=== PATIENT | female | born 1980 | race Caucasian/White ===

== ENCOUNTER 2016-04-11 08:40 | Observation (INO) ==
--- NOTE | 2016-04-11 08:52 | Emergency Department Note ---
Disposition Clinical Impression: Diverticulitis Qualifiers: Diverticulitis site: large intestine Diverticulitis bleeding: without bleeding Diverticulitis complication: without perforation or abscess Qualified Code(s): K57.32 - Diverticulitis of large intestine without perforation or abscess without bleeding Leukocytosis Qualifiers: Leukocytosis type: unspecified Qualified Code(s): D72.829 - Elevated white blood cell count, unspecified Disposition: Admitted As Inpatient Condition: Good Time of Disposition: 12:45 Abdominal Pain HPI - General Chief Complaint: ED Abdominal Pain Stated Complaint: RLQ pain Time Seen by Provider: 04/11/16 08:51 Source: patient Mode of arrival: ambulatory Limitations: no limitations Nursing Notes Reviewed: Yes Vital Signs Reviewed: Yes - History of Present Illness HPI Narrative: 35-year-old female history of diverticulitis, ovarian cyst who presents to the ER with a chief complaint of abdominal pain. Patient reports onset of symptoms yesterday morning. States she has had a sharp right lower quadrant abdominal pain since onset. Reports that she has felt nauseated but no episodes of vomiting. Also reports diarrhea. No fevers at home. No sick contacts. Surgical history significant for cholecystectomy. No other complaints. Pt Subjective Complaint: abdominal pain Onset (ago): day(s) (1) Consistency: constant Location: RLQ Pain Severity: severe Pain Scale: 8 Quality: sharp Radiation: none Migration to: no migration Improves with: nothing Worsens with: movement Context: history of similar episodes Associated symptoms: Reports: nausea, diarrhea. Denies: vomiting, fever, chills , constipation, dysuria, hematuria Treatments prior to arrival: none - Related Data Previous Rx's Medication Instructions Recorded Ciprofloxacin HCl [Cipro] 500 mg PO BID #20 tablet 04/11/16 MetroNIDAZOLE [Flagyl] 500 mg PO TID #30 tablet 04/11/16 Ondansetron ODT [Zofran ODT] 4 mg SL Q6HR PRN #20 tab.rapdis 04/11/16 Oxycodone HCl/Acetaminophen 1 each PO Q6H PRN #14 tablet 04/11/16 [Percocet 5-325 mg Tablet] Allergies Allergy/AdvReac Type Severity Reaction Status Date / Time No Known Allergies Allergy Verified 04/11/16 08:48 All systems ED: reviewed and negative except as stated. Constitutional: Denies: fever Cardiovascular: Denies: chest pain Respiratory: Denies: cough, dyspnea Gastrointestinal: Reports: abdominal pain, nausea, diarrhea. Denies: vomiting Genitourinary: Denies: dysuria, hematuria Abdominal Pain PMH - Past Medical History Medical history: Reports: non-contributory Reports: diverticulitis Female Surgical History: Reports: cholecystectomy - Social History Smoking status: Current every day smoker Alcohol use: Reports: none Drug use: Reports: none Physical Exam - General Limitations: no limitations General appearance: alert, in no apparent distress - Head Head exam: atraumatic, normocephalic, normal inspection - Eye Eye exam: Present: normal appearance, EOMI - ENT ENT exam: normal exam - Neck Neck exam: Present: normal inspection - Chest Chest inspection: Present: normal inspection, symmetric chest wall rise - Respiratory Respiratory exam: Present: normal lung sounds bilaterally - Cardiovascular Cardiovascular exam: Present: normal rhythm, tachycardia, normal heart sounds - Abdominal Exam Abdominal exam: Present: soft, tenderness (Moderate tenderness to palpation in the right lower quadrant and McBurney's point. No guarding or rigidity. Nondistended abdomen.) - Extremities Exam Extremities exam: Present: normal inspection, full ROM - Expanded Upper Extremity Exam Shoulder exam: Present: normal inspection, full ROM Arm exam: Present: normal inspection, full ROM Elbow exam: Present: normal inspection, full ROM Forearm/Wrist exam: Present: normal inspection, full ROM Hand exam: Present: normal inspection, full ROM - Expanded Lower Extremity Exam Hip/Pelvis exam: Present: normal inspection, full ROM Upper leg exam: Present: normal inspection, full ROM Knee exam: Present: normal inspection, full ROM Lower leg exam: Present: normal inspection, full ROM Ankle exam: Present: normal inspection, full ROM Foot/toe exam: Present: normal inspection, full ROM - Neurological Exam Neurological exam: Present: alert - Psychiatric Psychiatric exam: Present: normal affect, anxious - Skin Skin exam: Present: warm, dry, intact, normal color Course Course Narrative: Patient seen and examined. Vital signs reviewed. She has tenderness in the right lower quadrant. Reports a history of this in the past but not this severe. We will get the patient IV, IV fluids, Zofran and Dilaudid for pain. We will get a CT scan of the abdomen and pelvis for evaluation and some basic labs including lipase and LFTs. Disposition pending. - Reevaluation(s) Reevaluation #1: Patient seen after CT scan. She reports that her pain is under control now when she does not move. Also reports myalgias okay and does not need anything else for pain or nausea. Waiting for the final read from radiology. Reevaluation #2: Discussed results of CT scan the patient. She currently requests something else for pain. We will give her a dose of IV antibiotics here as well prior to discharge. Vital Signs Temperature 97.7 F 04/11/16 08:44 Pulse Rate 103 04/11/16 08:44 Respiratory Rate 18 04/11/16 08:44 Blood Pressure 132/85 04/11/16 08:44 O2 Sat by Pulse Oximetry 96 04/11/16 08:44 Temperature 98.1 F 04/11/16 15:50 Pulse Rate 71 04/11/16 15:50 Respiratory Rate 15 04/11/16 15:50 Blood Pressure 107/61 04/11/16 15:50 O2 Sat by Pulse Oximetry 95 04/11/16 15:50 Oxygen Delivery Oxygen Delivery Room Air Abdominal Pain - MDM Narrative Medical decision making narrative: 35-year-old female presents to the ER due to abdominal pain. She has a slight leukocytosis here of 15. Nausea and vomiting are controlled with anti-emetics. CT scan of the abdomen and pelvis reveals cecal diverticulitis as reported by the radiologist. No evidence of perforation or abscess formation. Patient given IV Cipro and Flagyl here. Her pain is controlled with IV medications. Patient agreeable with discharge home with follow-up to gastroenterology. She will be provided with Cipro and Flagyl for antibiotics, Zofran and Percocet for nausea and pain control. Patient instructed on reasons to return. 14:00 patient started developing vomiting again and was given 4 more of Zofran. Patient states she still feels nauseous and is unable to keep anything down. Patient agreeable to staying in the hospital for IV fluids and antibiotics. - Lab Data Lab results reviewed: Yes I reviewed the patient's lab results. Result diagrams: 04/11/16 09:18 04/11/16 09:18 Lab Results 04/11/16 04/11/16 04/11/16 Range/Units 09:06 09:06 09:18 WBC 15.5 H (4.3-11.1) K/mcL RBC 4.77 (3.82-4.97) M/mcL Hgb 14.7 (11.5-15.4) g/dL Hct 43.3 (35.3-44.9) % MCV 90.8 (83.0-100.0) fL MCH 30.8 (28.0-33.3) pg MCHC 33.9 (31.6-35.5) g/dL RDW 13.2 (11.5-14.5) % Plt Count 412 H (140-400) K/mcL MPV 9.9 (9.4-12.4) fL Immature Gran % 0.3 (0-4) % Seg Neutrophils % 76.9 % Lymphocytes % 15.5 % Monocytes % 5.7 % Eosinophils % 1.2 % Basophils % 0.4 % Neutrophils # 12.0 H (1.6-8.9) K/mcL Lymphocytes # 2.4 (0.6-4.6) K/mcL Monocytes # 0.9 (0.0-1.3) K/mcL Eosinophils # 0.2 (0.0-0.6) K/mcL Basophils # 0.1 (0.0-0.2) K/mcL PT (9.4-12.1) Seconds INR Sodium (136-145) mEq/L Potassium (3.5-4.5) mEq/L Chloride (98-109) mEq/L Carbon Dioxide (19-29) mEq/L BUN (7-20) mg/dL Creatinine (0.57-1.11) mg/dL Est GFR ( Amer) (> 60) Est GFR (Non-Af Amer) (> 60) BUN/Creatinine Ratio (6-26) Glucose (70-99) mg/dL Calculated Osmolality (280-300) Calcium (8.6-10.8) mg/dL Total Bilirubin (0.2-1.2) mg/dL Direct Bilirubin (0.0-0.5) mg/dL Indirect Bilirubin (0.0-1.2) mg/dL AST (5-34) Units/L ALT (0-55) Units/L Alkaline Phosphatase (38-126) Units/L Serum Total Protein (6.0-8.3) g/dL Albumin (3.5-5.0) g/dL Globulin (2.4-3.5) g/dL Albumin/Globulin Ratio (1.1-2.2) Lipase (8-78) Units/L Urine Color Yellow (Yellow) Urine Clarity Clear (Clear) Urine pH 6.5 (5.0-8.0) pH Units Ur Specific Whitney 1.025 (1.010-1.025) Urine Protein Trace (Neg-Trace) mg/dL Urine Glucose (UA) Normal (Normal) mg/dL Urine Ketones Negative (Negative) mg/dL Urine Blood Moderate H (Negative) Urine Nitrite Negative (Negative) Urine Bilirubin Negative (Negative) Urine Urobilinogen Normal (Normal) mg/dL Ur Leukocyte Esterase Negative (Negative) Urine Microscopic RBC 0-3 (0-3) per hpf Urine Microscopic WBC 3-5 H (0-3) per hpf Ur Squamous Epith Cells Many H (None-Few) per lpf Urine Bacteria Few (None-Few) per hpf Hyaline Casts None Seen (None-Few) per lpf Ur Culture Indicated? NO (NO) Urine Test Negative (Negative) 04/11/16 04/11/16 Range/Units 09:18 09:18 WBC (4.3-11.1) K/mcL RBC (3.82-4.97) M/mcL Hgb (11.5-15.4) g/dL Hct (35.3-44.9) % MCV (83.0-100.0) fL MCH (28.0-33.3) pg MCHC (31.6-35.5) g/dL RDW (11.5-14.5) % Plt Count (140-400) K/mcL MPV (9.4-12.4) fL Immature Gran % (0-4) % Seg Neutrophils % % Lymphocytes % % Monocytes % % Eosinophils % % Basophils % % Neutrophils # (1.6-8.9) K/mcL Lymphocytes # (0.6-4.6) K/mcL Monocytes # (0.0-1.3) K/mcL Eosinophils # (0.0-0.6) K/mcL Basophils # (0.0-0.2) K/mcL PT 13.6 H (9.4-12.1) Seconds INR 1.3 Sodium 136 (136-145) mEq/L Potassium 3.9 (3.5-4.5) mEq/L Chloride 102 (98-109) mEq/L Carbon Dioxide 22 (19-29) mEq/L BUN 10 (7-20) mg/dL Creatinine 0.77 (0.57-1.11) mg/dL Est GFR ( Amer) > 60 (> 60) Est GFR (Non-Af Amer) > 60 (> 60) BUN/Creatinine Ratio 13 (6-26) Glucose 92 (70-99) mg/dL Calculated Osmolality 281 (280-300) Calcium 9.1 (8.6-10.8) mg/dL Total Bilirubin 0.8 (0.2-1.2) mg/dL Direct Bilirubin 0.3 (0.0-0.5) mg/dL Indirect Bilirubin 0.5 (0.0-1.2) mg/dL AST 24 (5-34) Units/L ALT 37 (0-55) Units/L Alkaline Phosphatase 79 (38-126) Units/L Serum Total Protein 8.6 H (6.0-8.3) g/dL Albumin 3.8 (3.5-5.0) g/dL Globulin 4.8 H (2.4-3.5) g/dL Albumin/Globulin Ratio 0.8 L (1.1-2.2) Lipase 17 (8-78) Units/L Urine Color (Yellow) Urine Clarity (Clear) Urine pH (5.0-8.0) pH Units Ur Specific Whitney (1.010-1.025) Urine Protein (Neg-Trace) mg/dL Urine Glucose (UA) (Normal) mg/dL Urine Ketones (Negative) mg/dL Urine Blood (Negative) Urine Nitrite (Negative) Urine Bilirubin (Negative) Urine Urobilinogen (Normal) mg/dL Ur Leukocyte Esterase (Negative) Urine Microscopic RBC (0-3) per hpf Urine Microscopic WBC (0-3) per hpf Ur Squamous Epith Cells (None-Few) per lpf Urine Bacteria (None-Few) per hpf Hyaline Casts (None-Few) per lpf Ur Culture Indicated? (NO) Urine Test (Negative) - Radiology Data Radiology results reviewed: Yes I reviewed the patient's radiology results. Abdomen/Pelvis CT 04/11/16 09:04 IMPRESSION: Acute inflammatory change of the cecum is most consistent with focal cecal diverticulitis, less likely a focal infectious or inflammatory cecal colitis. There is no evidence of perforation, free air, or abscess. The appendix is normal. D/ / 04/11/2016 11:39:01 Konstantin Grullon MD / jones Interpreting Provider: Konstantin Grullon MD Attestation Statement - Attestation Attestation: I examined this patient and my medical decision-making was reviewed with the OTHER SPORTS COACH OR INSTRUCTOR/PA/Advanced Practice Nurse/Resident Physician. I agree with the documented findings, disposition and treatment plan as described except to the extent set forth below. 35-year-old female has easy with his right lower bowel pain. She had evolution of pain in the right lower quadrant past 24 hours. She has had no fevers. She does complain of nausea as well as diarrhea. No dysuria, hematuria or pyuria. Normal vaginal bleeding. No vaginal discharge. No recent trauma. Denies chest pain or dyspnea. No known ill exposures. Morbidly obese female in no apparent distress. Oropharynx clear mucous membranes dry. Neck is supple. Chest is clear to auscultation bilateral. Heart exam regular. Abdomen soft non-distended with moderate right lower quadrant tenderness. Flanks non-tender to palpation. Extremities warm and dry. Mild leukocytosis with white count 15,000. CT of the abdomen reveals cecal diverticulosis and diverticulitis. Appendix appears normal. She was given IV Cipro and Flagyl in the emergency department. She was temporarily better but the nausea and vomiting resumed and was unable to keep down oral fluids was therefore admitted for ongoing IV fluids and treatment.
[2016-04-11] MEDS ORDERED: 0.9 % Sodium Chloride 1,000 ML IVC ONE ×2 (08:58→10:43)
[2016-04-11] MEDS ORDERED: Ondansetron 4 MG/2 ML VIAL IVP ONE ×2 (08:58→13:34)
[2016-04-11] MEDS ORDERED: *HR* HYDROmorphone (PF) 1 MG/ML SYRINGE IVP ONE ×2 (09:04→11:56)
[2016-04-11 09:26] LABS: Basophils # 0.1 K/mcL (0.0-0.2); Basophils % 0.4 %; Eosinophils # 0.2 K/mcL (0.0-0.6); Eosinophils % 1.2 %; Hematocrit 43.3 % (35.3-44.9); Hemoglobin 14.7 g/dL (11.5-15.4); Immature Granulocytes % 0.3 % (0-4); Lymphocytes # 2.4 K/mcL (0.6-4.6); Lymphocytes % 15.5 %; Mean Corpuscular HGB Conc 33.9 g/dL (31.6-35.5); Mean Corpuscular Hemoglobin 30.8 pg (28.0-33.3); Mean Corpuscular Volume 90.8 fL (83.0-100.0); Mean Platelet Volume 9.9 fL (9.4-12.4); Monocytes # 0.9 K/mcL (0.0-1.3); Monocytes % 5.7 %; Platelet Count 412 K/mcL (140-400); Red Blood Count 4.77 M/mcL (3.82-4.97); Red Cell Distribution Width 13.2 % (11.5-14.5); Segmented Neutrophils % 76.9 %
[2016-04-11 09:26] LABS: Bilirubin,Urine Negative (Negative); Blood,Urine Moderate (Negative); Clarity,Urine Clear (Clear); Color,Urine Yellow (Yellow); Glucose,Urine (UA) Normal (Normal); Ketones,Urine Negative (Negative); Leukocyte Esterase,Urine Negative (Negative); Nitrite,Urine Negative (Negative); PH,Urine 6.5 pH Units (5.0-8.0); Protein,Urine Trace mg/dL (Neg-Trace); Specific Gravity,Urine 1.025 (1.010-1.025); Urobilinogen,Urine Normal (Normal)
[2016-04-11 09:30] LABS: Hyaline Casts,Urine None Seen per lpf (None-Few); RBC,Urine 0-3 per hpf (0-3); Squamous Epithelial Cell,Urine Many per lpf (None-Few)
[2016-04-11 09:33] LABS: INR 1.3; Prothrombin Time 13.6 Seconds (9.4-12.1)
[2016-04-11 09:41] LABS: Bacteria,Urine Few per hpf (None-Few)
[2016-04-11 09:42] LABS: Alanine Aminotransferase 37 Units/L (0-55); Albumin 3.8 g/dL (3.5-5.0); Albumin/Globulin Ratio 0.8 (1.1-2.2); Alkaline Phosphatase 79 Units/L (38-126); Aspartate Amino Transferase 24 Units/L (5-34); BUN/Creatinine Ratio 13 (6-26); Bilirubin,Direct 0.3 mg/dL (0.0-0.5); Bilirubin,Indirect 0.5 mg/dL (0.0-1.2); Bilirubin,Total 0.8 mg/dL (0.2-1.2); Blood Urea Nitrogen 10 mg/dL (7-20); Calcium 9.1 mg/dL (8.6-10.8); Carbon Dioxide 22 mEq/L (19-29); Chloride 102 mEq/L (98-109); Globulin 4.8 g/dL (2.4-3.5); Glucose 92 mg/dL (70-99); Lipase 17 Units/L (8-78); Osmolality,Calculated 281 (280-300); Potassium 3.9 mEq/L (3.5-4.5); Sodium 136 mEq/L (136-145); Total Protein 8.6 g/dL (6.0-8.3); eGFR For African Americans > 60 (> 60); eGFR For Non-African Americans > 60 (> 60)
[2016-04-11] MEDS ORDERED: MetroNIDAZOLE 500 MG/100 ML 500 MG/100 ML BAG IVPB ONE (11:56)
[2016-04-11] MEDS ORDERED: Naloxone 0.4 MG/ML INJ IVP PRN (15:40)
[2016-04-11] MEDS ORDERED: Ondansetron 4 MG/2 ML VIAL IVP PRN (15:40)
--- NOTE | 2016-04-11 15:50 | Internal Med History&Physical ---
Date of Encounter: 04/11/16 Time of Encounter: 15:44 Assessment and Plan (1) Diverticulitis Status: Acute Acute cecal diverticulitis: Etiology of this diverticulitis can be multifactorial. Patient is a young woman and in her age inflammatory bowel disease/autoimmune disease cannot be ruled out Plan: Nothing by mouth IV fluids normal saline 70 mL/h IV Zofran IV ciprofloxacin/IV metronidazole Close observation Patient has set up appointment with the gastroenterology/PCP This patient needs outpatient colonoscopy after the initial acute event is stabilized All above discussed with the patient and she verbalized understanding Qualifiers: Diverticulitis site: large intestine Diverticulitis bleeding: without bleeding Diverticulitis complication: without perforation or abscess Qualified Code(s): K57.32 - Diverticulitis of large intestine without perforation or abscess without bleeding (2) Leukocytosis Status: Acute This is likely secondary to diverticulitis. Antibiotics started for the patient. Qualifiers: Leukocytosis type: unspecified Qualified Code(s): D72.829 - Elevated white blood cell count, unspecified (3) DVT prophylaxis Status: Acute Heparin Medical decision-making: patient has a [id number] risk of worsening in spite of being on appropriate treatment The patient is clinically stable and she improved in terms of her vomiting, she can go home tomorrow Internal Medicine - H&P: HPI Chief complaint: abdominal pain Admitted From: Emergency Dept Plans for Post Hospital Care: Home History of present illness: PCP: Dr Rajesh Johnson PMH: H/O diverticulitis, Smoker HPI: Patient came to emergency room for persistent right lower quadrant abdominal pain. The pain started yesterday late morning. The pain was gradually progressing. The pain was waxing and waning in nature. The nature of the pain is sharp. Patient did not have any episode of vomiting at home but she felt nauseous. Patient had an episode of her diarrhea. Patient denies fever, sick contact. Patient denies history of chest pain, palpitation, dizziness and diplopia. In view of the persistent worsening pain, patient came to emergency room. Course in the emergency room: Patient was worked up in the emergency room. It was noted that her white blood cell count was elevated. Her white blood cell count was 15,000. She underwent CT scan of the abdomen. CT scan of the abdomen showed possibility of diverticulitis. Patient was given prescription after receiving IV antibiotics. Patient was all about to go home. But patient complains of persistent vomiting. In spite of 3 dosages of sore Zofran she did not respond and then she was still persistently vomited. Reason for admission: Persistent vomiting on the responding to the antiemetics in a patient who has a diverticulitis. Family history: Noncontributory Past Med Surg Social Fam HX - Past Medical History Medical history: non-contributory - Social History Smoking Status: Current every day smoker Alcohol use: none Drug use: none Internal Medicine - H&P: Meds Alprazolam [Xanax 1 MG Tablet] 1 mg PO BID 04/11/16 [History] Aripiprazole [Abilify] 5 mg PO DAILY 04/11/16 [History] Omeprazole [PriLOSEC] 40 mg PO DAILY 04/11/16 [History] Ciprofloxacin [Cipro] 500 mg PO BID 10 Days 04/13/16 [Rx] HYDROcodone/Acet 5/325 mg [Prospect 5-325 mg] 1 tab PO Q6H PRN #30 tab 04/13/16 [Rx ] MetroNIDAZOLE [Flagyl] 500 mg PO TID 10 Days 04/13/16 [Rx] Ondansetron [Zofran] 4 mg PO Q8HR PRN 30 Days 04/13/16 [Rx] Allergies No Known Allergies Allergy (Verified 04/11/16 08:48) All Systems PM: A 10-system review of systems was performed and is negative for pertinent findings except as documented above in the HPI. - Constitutional Constitutional: no chills, no fever(s), no night sweats - EENT Eyes: no change in vision, no discharge, no pain, no photophobia Ears: no ear discharge, no ear pain, no tinnitus Nose, mouth and throat: no dysphagia, no nasal discharge, no neck pain, no sore throat - Cardiovascular Cardiovascular ROS IM: no chest pain, no diaphoresis, no dyspnea, no lightheadedness, no palpitations, no syncope - Respiratory Respiratory: no cough, no dyspnea, no wheezing, no excessive phlegm production - Gastrointestinal Gastrointestinal: abdominal pain, belching, bloating, diarrhea, nausea, vomiting , no hematemesis, no hematochezia, no melena - Genitourinary Genitourinary: no change in urinary stream, no dysuria, no flank pain, no hematuria - Musculoskeletal Musculoskeletal ROS IM: no numbness, no tingling - Integumentary Integumentary IM: no rash, no unusual bruising - Neurological Neurological ROS: no confusion, no convulsions, no focal weakness, no numbness, no tingling, no tremor(s) - Hematologic/Lymphatic Hematologic/Lymphatic: no easy bruising - Constitutional Vitals: Temp Pulse Resp BP Pulse Ox 97.7 F 83 18 109/67 97 04/11/16 08:44 04/11/16 14:47 04/11/16 15:35 04/11/16 15:35 04/11/16 14:47 General appearance: Present: A&O X 3, pleasant, no acute distress, answers questions appropriately - Head Head exam: Present: atraumatic, normocephalic - Eye Eye exam: Present: PERRL, conjuntiva pink, sclera anicteric Pupils: Present: PERRL - Neck Neck exam general surgery: Present: supple, trachea midline. Absent: lymphadenopathy - Respiratory Respiratory exam: Present: CTAB. Absent: accessory muscle use, rales, rhonchi, wheezes - Cardiovascular Cardiovascular exam: Present: RRR, +S1, +S2. Absent: diastolic murmur, gallop, rubs, systolic murmur - GI/Abdominal GI/Abdominal exam: Present: normal bowel sounds, soft, no peritoneal signs. Absent: distended, tenderness - Extremities Exam Extremities exam: Present: warm, radial pulses palpable and symetrical. Absent : calf tenderness, cyanotic, pedal edema - Neurological Exam Neurological exam: Present: CN II-XII intact, oriented X3, no focal deficits. Absent: pronater drift, facial droop, speech deficit - Skin Skin exam: Present: dry, intact Internal Med - H&P Results - Labs CBC & Chem 7: 04/13/16 06:52 04/13/16 06:52
[2016-04-11] MEDS ORDERED: MetroNIDAZOLE 500 MG/100 ML 500 MG/100 ML BAG IVPB SCH (16:00)
[2016-04-11] MEDS: 0.9 % Sodium Chloride 1,000 ML IVC SCH (16:29)
[2016-04-11] MEDS: *HR* Morphine 2 MG/ML SYRINGE IVP PRN ×2 (16:29→20:51)
[2016-04-11] MEDS: *HR* Heparin 5,000 UNIT/ML VIAL SQ SCH (17:57)
[2016-04-11] MEDS: MetroNIDAZOLE 500 MG/100 ML 500 MG/100 ML BAG IVPB SCH (20:52)
[2016-04-12 05:20] LABS: Basophils # 0.1 K/mcL (0.0-0.2); Basophils % 0.5 %; Eosinophils # 0.1 K/mcL (0.0-0.6); Eosinophils % 0.5 %; Hematocrit 36.8 % (35.3-44.9); Immature Granulocytes % 0.5 % (0-4); Lymphocytes # 1.7 K/mcL (0.6-4.6); Mean Corpuscular HGB Conc 33.4 g/dL (31.6-35.5); Mean Corpuscular Volume 92.7 fL (83.0-100.0); Mean Platelet Volume 9.8 fL (9.4-12.4); Monocytes # 0.8 K/mcL (0.0-1.3); Neutrophils # 10.2 K/mcL (1.6-8.9); Platelet Count 316 K/mcL (140-400); Red Blood Count 3.97 M/mcL (3.82-4.97); Segmented Neutrophils % 79.5 %
[2016-04-12 05:21] LABS: Hemoglobin 12.3 g/dL (11.5-15.4)
[2016-04-12] MEDS: *HR* Morphine 2 MG/ML SYRINGE IVP PRN ×4 (05:34→18:36)
[2016-04-12] MEDS: MetroNIDAZOLE 500 MG/100 ML 500 MG/100 ML BAG IVPB SCH ×3 (05:34→20:09)
[2016-04-12] MEDS: *HR* Heparin 5,000 UNIT/ML VIAL SQ SCH ×2 (05:35→18:35)
[2016-04-12 05:40] LABS: Alanine Aminotransferase 41 Units/L (0-55); Albumin/Globulin Ratio 0.8 (1.1-2.2); Alkaline Phosphatase 63 Units/L (38-126); Aspartate Amino Transferase 27 Units/L (5-34); BUN/Creatinine Ratio 11 (6-26); Bilirubin,Total 1.1 mg/dL (0.2-1.2); Blood Urea Nitrogen 7 mg/dL (7-20); Calcium 8.7 mg/dL (8.6-10.8); Carbon Dioxide 22 mEq/L (19-29); Chloride 107 mEq/L (98-109); Globulin 3.9 g/dL (2.4-3.5); Glucose 96 mg/dL (70-99); Osmolality,Calculated 282 (280-300); Potassium 3.8 mEq/L (3.5-4.5); Sodium 137 mEq/L (136-145); Total Protein 6.9 g/dL (6.0-8.3); eGFR For African Americans > 60 (> 60); eGFR For Non-African Americans > 60 (> 60)
[2016-04-12] MEDS: 0.9 % Sodium Chloride 1,000 ML IVC SCH ×2 (08:29→12:20)
--- NOTE | 2016-04-12 12:41 | Internal Med Progress Note ---
<Anthony Luna - Last Filed: 04/12/16 13:22> Date of Encounter: 04/12/16 Time of Encounter: 09:00 - Assessment and plan (1) Diverticulitis Current Visit: Yes Status: Acute Assessment and plan: 04/12/16 Continue nothing by mouth Patient's emesis has resolved Continue antibiotics 04/11/16 Acute cecal diverticulitis: Etiology of this diverticulitis can be multifactorial. Patient is a young woman and in her age inflammatory bowel disease/autoimmune disease cannot be ruled out Plan: Nothing by mouth IV fluids normal saline 70 mL/h IV Zofran IV ciprofloxacin/IV metronidazole Close observation Patient has set up appointment with the gastroenterology/PCP This patient needs outpatient colonoscopy after the initial acute event is stabilized All above discussed with the patient and she verbalized understanding Qualifiers: Diverticulitis site: large intestine Diverticulitis bleeding: without bleeding Diverticulitis complication: without perforation or abscess Qualified Code(s): K57.32 - Diverticulitis of large intestine without perforation or abscess without bleeding (2) Leukocytosis Current Visit: Yes Status: Acute Assessment and plan: 04/12/69 This is trending down 04/11/16 This is likely secondary to diverticulitis. Antibiotics started for the patient. Qualifiers: Leukocytosis type: unspecified Qualified Code(s): D72.829 - Elevated white blood cell count, unspecified (3) DVT prophylaxis Current Visit: Yes Status: Acute Assessment and plan: Continue heparin - Subjective Interval history: Patient was seen and examined at bedside. She was lying in bed in no apparent distress. She says she is still having significant RLQ pain however says this is significantly better than yesterday. Her emesis has resolved. - Constitutional Vitals: Temp Pulse Resp BP Pulse Ox 99.3 F 84 16 100/66 95 04/12/16 11:16 04/12/16 11:16 04/12/16 11:16 04/12/16 11:16 04/12/16 11:16 General appearance: Present: A&O X 3, pleasant, no acute distress, answers questions appropriately - Head Head exam: Present: atraumatic, normocephalic - Eye Eye exam: Present: PERRL, conjuntiva pink, sclera anicteric Pupils: Present: PERRL - Neck Neck exam general surgery: Present: supple, trachea midline. Absent: lymphadenopathy - Respiratory Respiratory exam: Present: CTAB. Absent: accessory muscle use, rales, rhonchi, wheezes - Cardiovascular Cardiovascular exam: Present: RRR, +S1, +S2. Absent: diastolic murmur, gallop, rubs, systolic murmur - GI/Abdominal GI/Abdominal exam: Present: soft, tenderness, no peritoneal signs. Absent: distended Additional comments: Hypoactive bowel sounds, right lower quadrant tenderness palpation - Extremities Exam Extremities exam: Present: warm, radial pulses palpable and symetrical. Absent : calf tenderness, cyanotic, pedal edema - Neurological Exam Neurological exam: Present: CN II-XII intact, oriented X3, no focal deficits. Absent: pronater drift, facial droop, speech deficit - Skin Skin exam: Present: dry, intact Internal Medicine: Result - Labs CBC & Chem 7: 04/12/16 05:10 04/12/16 05:10 Labs: Short CBC 04/12/16 Range/Units 05:10 WBC 12.8 H (4.3-11.1) K/mcL Hgb 12.3 D (11.5-15.4) g/dL Hct 36.8 (35.3-44.9) % Plt Count 316 (140-400) K/mcL Neutrophils # 10.2 H (1.6-8.9) K/mcL BMP 04/12/16 05:10 Sodium 137 Potassium 3.8 Chloride 107 Carbon Dioxide 22 BUN 7 Creatinine 0.65 Glucose 96 Calcium 8.7 Liver Function 04/12/16 Range/Units 05:10 Total Bilirubin 1.1 (0.2-1.2) mg/dL AST 27 (5-34) Units/L ALT 41 (0-55) Units/L Alkaline Phosphatase 63 (38-126) Units/L Albumin 3.0 L D (3.5-5.0) g/dL - ABG Interpretation ABG results: PT/INR, D-dimer PT 13.6 Seconds (9.4-12.1) H 04/11/16 09:18 Consult Discharge Plan - Plan Referrals: Lissette Mena MD [Primary Care Provider] - <Marquis Coleman - Last Filed: 04/12/16 17:57> Date of Encounter: 04/12/16 - Constitutional Vitals: Temp Pulse Resp BP Pulse Ox 98.1 F 84 16 104/68 95 04/12/16 14:55 04/12/16 14:55 04/12/16 14:55 04/12/16 14:55 04/12/16 14:55 Internal Medicine: Result - Labs CBC & Chem 7: 04/12/16 05:10 04/12/16 05:10 Labs: Short CBC 04/12/16 Range/Units 05:10 WBC 12.8 H (4.3-11.1) K/mcL Hgb 12.3 D (11.5-15.4) g/dL Hct 36.8 (35.3-44.9) % Plt Count 316 (140-400) K/mcL Neutrophils # 10.2 H (1.6-8.9) K/mcL BMP 04/12/16 05:10 Sodium 137 Potassium 3.8 Chloride 107 Carbon Dioxide 22 BUN 7 Creatinine 0.65 Glucose 96 Calcium 8.7 Liver Function 04/12/16 Range/Units 05:10 Total Bilirubin 1.1 (0.2-1.2) mg/dL AST 27 (5-34) Units/L ALT 41 (0-55) Units/L Alkaline Phosphatase 63 (38-126) Units/L Albumin 3.0 L D (3.5-5.0) g/dL - ABG Interpretation ABG results: PT/INR, D-dimer PT 13.6 Seconds (9.4-12.1) H 04/11/16 09:18 - Attending Attestation I examined this patient and my medical decision-making was reviewed with the CARGO AND CONTAINER INSPECTOR/PA/Advanced Practice Nurse/Resident Physician. I agree with the documented findings, disposition and treatment plan as described except to the extent set forth below. Diverticulitis. Will start clear liquid diet and advance diet accordingly. Continue iv antibiotics. D/W patient.
[2016-04-12] MEDS ORDERED: Acetaminophen/Aspirin/Caffeine TABLET PO PRN (12:59)
[2016-04-13] MEDS: *HR* Morphine 2 MG/ML SYRINGE IVP PRN ×3 (00:13→08:13)
[2016-04-13] MEDS: MetroNIDAZOLE 500 MG/100 ML 500 MG/100 ML BAG IVPB SCH (04:11)
[2016-04-13] MEDS: 0.9 % Sodium Chloride 1,000 ML IVC SCH ×2 (04:18→10:41)
[2016-04-13] MEDS: *HR* Heparin 5,000 UNIT/ML VIAL SQ SCH (05:47)
[2016-04-13 06:49] VITALS: BP 103/69
--- NOTE | 2016-04-13 08:00 | Internal Med Progress Note ---
Date of Encounter: 04/13/16 - Constitutional Vitals: Temp Pulse Resp BP Pulse Ox 98.2 F 68 16 103/69 95 04/13/16 06:44 04/13/16 06:44 04/13/16 06:44 04/13/16 06:44 04/13/16 06:44 General appearance: Present: A&O X 3, pleasant, no acute distress, answers questions appropriately Internal Medicine: Result - Labs CBC & Chem 7: 04/12/16 05:10 04/12/16 05:10 - ABG Interpretation ABG results: PT/INR, D-dimer PT 13.6 Seconds (9.4-12.1) H 04/11/16 09:18 Consult Discharge Plan - Plan Referrals: Lissette Mena MD [Primary Care Provider] -
[2016-04-13 08:17] LABS: Basophils # 0.1 K/mcL (0.0-0.2); Basophils % 0.6 %; Eosinophils # 0.2 K/mcL (0.0-0.6); Eosinophils % 2.5 %; Hemoglobin 11.5 g/dL (11.5-15.4); Immature Granulocytes % 0.5 % (0-4); Lymphocytes # 1.8 K/mcL (0.6-4.6); Mean Corpuscular HGB Conc 32.9 g/dL (31.6-35.5); Mean Corpuscular Hemoglobin 30.7 pg (28.0-33.3); Mean Corpuscular Volume 93.6 fL (83.0-100.0); Mean Platelet Volume 10.4 fL (9.4-12.4); Monocytes # 0.6 K/mcL (0.0-1.3); Monocytes % 7.1 %; Neutrophils # 5.9 K/mcL (1.6-8.9); Platelet Count 316 K/mcL (140-400); Red Blood Count 3.74 M/mcL (3.82-4.97); Red Cell Distribution Width 13.1 % (11.5-14.5); Segmented Neutrophils % 68.3 %
[2016-04-13 08:33] LABS: BUN/Creatinine Ratio 10 (6-26); Blood Urea Nitrogen 6 mg/dL (7-20); Calcium 8.2 mg/dL (8.6-10.8); Carbon Dioxide 24 mEq/L (19-29); Chloride 105 mEq/L (98-109); Glucose 82 mg/dL (70-99); Osmolality,Calculated 283 (280-300); Potassium 3.6 mEq/L (3.5-4.5); Sodium 138 mEq/L (136-145); eGFR For African Americans > 60 (> 60); eGFR For Non-African Americans > 60 (> 60)
--- NOTE | 2016-04-13 08:59 | Discharge Summary ---
Date of Encounter: 04/13/16 Time of Encounter: 08:35 - Discharge Medications Prescriptions: Ondansetron [Zofran] 4 mg PO Q8HR PRN 30 Days PRN Reason: Nausea Ciprofloxacin [Cipro] 500 mg PO BID 10 Days HYDROcodone/Acet 5/325 mg [[facility] 5-325 mg] 1 tab PO Q6H PRN #30 tab PRN Reason: Pain MetroNIDAZOLE [Flagyl] 500 mg PO TID 10 Days Home Medications: Alprazolam [Xanax 1 MG Tablet] 1 mg PO BID 04/11/16 [History] Aripiprazole [Abilify] 5 mg PO DAILY 04/11/16 [History] Omeprazole [PriLOSEC] 40 mg PO DAILY 04/11/16 [History] Ciprofloxacin [Cipro] 500 mg PO BID 10 Days 04/13/16 [Rx] HYDROcodone/Acet 5/325 mg [[facility] 5-325 mg] 1 tab PO Q6H PRN #30 tab 04/13/16 [Rx ] MetroNIDAZOLE [Flagyl] 500 mg PO TID 10 Days 04/13/16 [Rx] Ondansetron [Zofran] 4 mg PO Q8HR PRN 30 Days 04/13/16 [Rx] Allergies/Adverse Reactions: Allergies No Known Allergies Allergy (Verified 04/11/16 08:48) Date of admission: 04/11/16 14:44 Primary care physician: Lissette Mena - Patient Status Disposition: Home, Self-Care Condition: Good Overall status at discharge: patient is progressing back to baseline - Discharge Instructions Follow Up With: Lissette Mena MD [Primary Care Provider] - Additional Instructions: F/U with gastroeneterology in the outpatient 1-2 weeks. - Diet and Activity Activity: resume usual activities as tolerated Diet: other (low residue diet for 2 weeks, then advance to high fiber diet. Avoid nuts, pop corn, seed etc.) Hospital course: Ms. Membreno is a 35 year old female - Time Spent with Patient Total time spent providing and/or coordinating discharge services: - Constitutional Vitals: Temp Pulse Resp BP Pulse Ox 98.2 F 68 16 103/69 95 04/13/16 06:44 04/13/16 06:44 04/13/16 06:44 04/13/16 06:44 04/13/16 06:44 General appearance: Present: A&O X 3, pleasant, no acute distress, answers questions appropriately
== END 2016-04-13 11:12 | disposition home or self-care (01) ==
LOC: 3ANU 08:40 → EMEROO 08:40 → SUATTDRO 14:44 → 3ANU 15:04
PROVIDERS: ADMIT Internal Medicine Endocrinology, Diabetes & Metabolism; ATTEND Internal Medicine

== ENCOUNTER 2020-07-08 08:09 | Observation (INO) ==
[2020-07-08] MEDS ORDERED: *HR* HYDROmorphone (PF) 1 MG/ML SYRINGE IVP ONE ×2 (08:23→10:56)
[2020-07-08] MEDS ORDERED: Gadolinium Contrast Agent (WT Based) IV PRN (08:23)
[2020-07-08 08:43] LABS: Bilirubin,Urine Negative (Negative); Blood,Urine Large (Negative); Clarity,Urine Clear (Clear); Color,Urine Light-Yellow (Yellow); Glucose,Urine (UA) Normal (Normal); Ketones,Urine Negative (Negative); Leukocyte Esterase,Urine Small (Negative); Mucus,Urine Few per lpf (None-Few); Nitrite,Urine Negative (Negative); Protein,Urine Trace mg/dL (Neg-Trace); RBC,Urine TNTC per hpf (0-3); Specific Gravity,Urine 1.021 (1.010-1.025); Squamous Epithelial Cell,Urine Few per hpf (None-Few); Urobilinogen,Urine Normal (Normal)
[2020-07-08] MEDS ORDERED: Isovue-370 500 ML BOTTLE IVP ONE (09:28)
[2020-07-08] MEDS ORDERED: cefTRIAXone 1,000 MG in Water for inj. (sterile) 10 ML IVP ONE (10:41)
[2020-07-08] MEDS ORDERED: Acetaminophen 325 MG TABLET PO PRN (12:20)
[2020-07-08] MEDS ORDERED: Naloxone 0.4 MG/ML INJ IVP PRN (12:20)
[2020-07-08] MEDS ORDERED: *HR* HYDROmorphone (PF) 1 MG/ML SYRINGE IVP PRN (12:22)
[2020-07-08] MEDS ORDERED: Potassium Chloride Elixir 20 MEQ/15 ML UDC PO ONE (12:59)
[2020-07-08] MEDS: *HR* OxyCODONE Immed Rel 5 MG TABLET PO PRN ×2 (13:51→21:41)
[2020-07-08] MEDS: *HR* HYDROcodone/Acet 5/325 mg TABLET PO PRN (14:58)
[2020-07-08] MEDS: *HR* Heparin 5,000 UNIT/ML VIAL SQ SCH (17:44)
[2020-07-09] MEDS: *HR* HYDROcodone/Acet 5/325 mg TABLET PO PRN ×3 (02:40→16:11)
[2020-07-09 02:47] LABS: BUN/Creatinine Ratio 19 (6-26); Blood Urea Nitrogen 10 mg/dL (6-20); Calcium 8.2 mg/dL (8.6-10.3); Carbon Dioxide 24 mEq/L (23-29); Chloride 102 mEq/L (98-107); Glucose 87 mg/dL (70-105); Osmolality,Calculated 280 (280-300); Sodium 136 mEq/L (136-145); eGFR For African Americans > 60 (> 60); eGFR For Non-African Americans > 60 (> 60)
[2020-07-09 02:58] LABS: Basophils # 0.1 K/mcL (0.0-0.2); Basophils % 0.6 %; Eosinophils # 0.3 K/mcL (0.0-0.6); Eosinophils % 3.6 %; Hematocrit 37.1 % (35.3-44.9); Hemoglobin 12.5 g/dL (11.5-15.4); Immature Granulocytes % 0.5 % (0-4); Lymphocytes # 2.6 K/mcL (0.6-4.6); Mean Corpuscular HGB Conc 33.7 g/dL (31.6-35.5); Mean Corpuscular Hemoglobin 30.6 pg (28.0-33.3); Mean Corpuscular Volume 90.9 fL (83.0-100.0); Mean Platelet Volume 10.6 fL (9.4-12.4); Monocytes # 0.4 K/mcL (0.0-1.3); Monocytes % 5.3 %; Neutrophils # 4.3 K/mcL (1.6-8.9); Platelet Count 399 K/mcL (140-400); Red Blood Count 4.08 M/mcL (3.82-4.97); Red Cell Distribution Width 14.1 % (11.5-14.5); White Blood Count 7.7 K/mcL (4.3-11.1)
[2020-07-09 03:45] LABS: Platelet Estimate Normal (Normal); Reactive Lymphocytes Present (Not Present)
[2020-07-09] MEDS: *HR* OxyCODONE Immed Rel 5 MG TABLET PO PRN ×2 (05:25→11:47)
[2020-07-09] MEDS: *HR* Heparin 5,000 UNIT/ML VIAL SQ SCH (05:25)
[2020-07-09 07:20] VITALS: BP 144/87
[2020-07-09] MEDS ORDERED: cefTRIAXone 1,000 MG in Water for inj. (sterile) 10 ML IVP SCH (09:00)
== END 2020-07-09 16:35 | disposition home or self-care (01) ==
LOC: EMEROOARM 08:09 → 3NENU 08:09 → SUATTDRO 11:41 → 3NENU 12:46
PROVIDERS: ADMIT Internal Medicine; ATTEND Student in an Organized Health Care Education/Training Program